=== PATIENT | male | born 1990 | race Caucasian/White ===

== ENCOUNTER 2018-05-04 09:15 | Emergency (ER) | payer OTHER ==
[~2018-05-04] VITALS: Ht 167.6 cm; Wt 68.0 kg
[2018-05-04 09:19] VITALS: Ht 167.6 cm; Wt 68.0 kg
[2018-05-04 10:55] VITALS: BP 127/85
== END 2018-05-04 10:55 | disposition home or self-care (01) ==
LOC: ED 09:15
DX: S31.21XA Laceration without foreign body of penis, initial encounter (principal); X58.XXXA Exposure to other specified factors, initial encounter; Y93.89 Activity, other specified; Y92.89 Other specified places as the place of occurrence of the external cause; Y99.8 Other external cause status
CPT/HCPCS: J2001

== ENCOUNTER 2018-05-11 07:59 | Emergency (ER) | payer OTHER ==
[~2018-05-11] VITALS: Ht 162.6 cm; Wt 69.1 kg
[2018-05-11 08:04] VITALS: Ht 162.6 cm; Wt 69.1 kg
[2018-05-11 08:45] VITALS: BP 140/86
== END 2018-05-11 08:45 | disposition home or self-care (01) ==
LOC: ED 07:59
DX: Z48.02 Encounter for removal of sutures (principal)